=== PATIENT | male | born 1940 | race Caucasian/White ===

== ENCOUNTER 2016-08-24 12:12 | Emergency (ER) | payer MEDICARE ==
[2013-05-26 18:32] VITALS: BMI 29.0
[~2016-08-24 12:12] MED LIST: AMARYL1 MG; ASPIRIN81 MG PO; CRESTOR10 MG PO; EFFEXOR75 MG PO; FISH OIL 1,0001 CA1 PO; GEMFIBROZIL600 MG PO; IBUPROFEN200 MG; LISINOPRIL10 MG PO; PLAVIX75 MG PO
[2016-08-24 12:32] LABS: BASOPHILS 0.1 % (0-2); EOSINOPHILS 1.5 % (0-7); HEMATOCRIT 37.2 % (42.0-54.0); HEMOGLOBIN 12.9 g/dL (13.5-17.5); IMMATURE GRANULOCYTES 0.8 % (0-5); LYMPHOCYTES 20.4 % (15-50); MCH 32.2 pg (26.0-34.0); MCHC 34.7 g/dL (31.0-37.0); MCV 92.8 fL (80.0-100.0); MEAN PLATELET VOLUME 9.6 fL (7.4-10.4); MONOCYTES 12.8 % (2-11); NEUTROPHILS 64.4 % (40-80); PLATELET COUNT 159 10x3/uL (130-400); RBC 4.01 10x6/uL (4.20-6.10)
[2016-08-24 13:01] LABS: ALBUMIN 4.1 g/dL (3.4-5.0); ANION GAP 17.9 mmol/L (8-16); BILIRUBIN - TOTAL 0.5 mg/dL (0.2-1.3); CALCIUM 9.9 mg/dL (8.5-10.1); CREATININE - SERUM 1.6 mg/dL (0.6-1.3); POTASSIUM - SERUM 3.9 mmol/L (3.5-5.1); PROTEIN - SERUM 7.5 g/dL (6.4-8.2)
[2016-08-24 13:34] LABS: APPEARANCE CLEAR (CLEAR); BILIRUBIN NEGATIVE (NEGATIVE); COLOR DK YELLOW (YELLOW); EPITHELIAL CELLS 0-5 /hpf (0-5); GLUCOSE NEGATIVE (NEGATIVE); KETONE NEGATIVE (NEGATIVE); LEUKOCYTE ESTERASE TRACE (NEGATIVE); NITRITE NEGATIVE (NEGATIVE); PROTEIN NEGATIVE (NEGATIVE); RED CELLS - URINE RARE /hpf (0-5); UROBILINOGEN NORMAL (NORMAL); WHITE CELLS - URINE OCC /hpf (0-5)
[2016-08-24 13:35] LABS: BACTERIA FEW /hpf (NONE SEEN); HYALINE CAST OCC /lpf (NONE SEEN); MUCUS >1+ /lpf (NONE SEEN); WAXY CAST RARE /lpf (NONE SEEN)
== END 2016-08-24 14:45 | disposition home or self-care (01) ==
LOC: D.ER 12:12
PROVIDERS: Emergency Medicine
DX: R53.1 Weakness (principal); I95.1 Orthostatic hypotension; E11.9 Type 2 diabetes mellitus without complications; I10 Essential (primary) hypertension

== ENCOUNTER 2016-08-31 13:12 | Inpatient (IN) | payer MEDICARE ==
[~2016-08-31] VITALS: Ht 185.4 cm; Wt 90.1 kg
[~2016-08-31 13:12] MED LIST changes: -AMARYL1 MG; +GLIMEPIRIDE2 MG PO
[2016-08-31 14:01] LABS: APPEARANCE CLEAR (CLEAR); BILIRUBIN NEGATIVE (NEGATIVE); COLOR YELLOW (YELLOW); GLUCOSE NEGATIVE (NEGATIVE); KETONE NEGATIVE (NEGATIVE); LEUKOCYTE ESTERASE NEGATIVE (NEGATIVE); NITRITE NEGATIVE (NEGATIVE); PROTEIN NEGATIVE (NEGATIVE); SPECIFIC GRAVITY 1.015 (1.005-1.020); UROBILINOGEN NORMAL (NORMAL)
[2016-08-31 15:29] LABS: BASOPHILS 0.1 % (0-2); EOSINOPHILS 0.7 % (0-7); HEMOGLOBIN 12.8 g/dL (13.5-17.5); IMMATURE GRANULOCYTES 1.6 % (0-5); LYMPHOCYTES 16.4 % (15-50); MCH 31.9 pg (26.0-34.0); MCHC 34.6 g/dL (31.0-37.0); MCV 92.3 fL (80.0-100.0); MONOCYTES 12.3 % (2-11); NEUTROPHILS 68.9 % (40-80); RBC 4.01 10x6/uL (4.20-6.10); RDW 13.3 % (11.5-14.5); WBC 10.7 10x3/uL (4.8-10.8)
[2016-08-31 15:31] LABS: PLATELET COUNT 232 10x3/uL (130-400)
[2016-08-31 15:32] LABS: INR 1.15 (0.85-1.17); PROTIME 14.6 SECONDS (11.6-15.0)
[2016-08-31 15:33] LABS: APTT 31.6 SECONDS (22.8-39.4)
[2016-08-31 15:37] LABS: ANION GAP 22.5 mmol/L (8-16); BILIRUBIN - TOTAL 0.44 mg/dL (0.2-1.3); CALCIUM 9.7 mg/dL (8.5-10.1); CARBON DIOXIDE 17.3 mmol/L (21.0-32.0); CREATININE - SERUM 2.7 mg/dL (0.6-1.3); POTASSIUM - SERUM 3.8 mmol/L (3.5-5.1); PROTEIN - SERUM 7.8 g/dL (6.4-8.2)
[2016-08-31] MEDS ORDERED: FLAXSEED OIL1000 MG PO (17:51)
[2016-08-31] MEDS ORDERED: ZOCOR40 MG PO (17:51)
[2016-08-31 17:53] VITALS: BP 166/84; BMI 22.3
--- NOTE | 2016-08-31 18:33 | NUR ---
PT FIRST EKG IS ON CHART. ORDER FOR RICHARDS CATH OBTAINED. 16F RICHARDS CATH INSERTED STERILE TECHNIQUE INITIATED. 10 CC STERILE NS INSERTED INTO BALLOON. PT TOLERATED WELL.
--- NOTE | 2016-08-31 18:44 | NUR ---
PT BS BACK UP TO 88
[2016-08-31 19:00] VITALS: BP 171/81
[2016-08-31 19:23] LABS: CKMB 1.1 U/L (0.0-3.6); CREATINE KINASE 55 UL (21-232)
[2016-08-31 19:25] LABS: TROPONIN-I < 0.017 ng/mL (0.000-0.060)
--- NOTE | 2016-08-31 19:30 | NUR ---
RECEIVED REPORT, WILL ASSUME CARE OF PT, PT DENIES ANY NEEDS, BED IS LOW, SRX2, BED ALARM IS ON. CALL LIGHT IN REACH, WILL CONTINUE PLAN OF CARE
--- NOTE | 2016-08-31 23:47 | NUR ---
EKG COMPLETE, BLOODSUGAR-72, NO COVERAGE NEEDED
[2016-09-01] VITALS: BP 154/85
[2016-09-01 01:35] LABS: CKMB 1.4 U/L (0.0-3.6); CREATINE KINASE 71 UL (21-232); TROPONIN-I < 0.017 ng/mL (0.000-0.060)
[2016-09-01 04:00] VITALS: BP 145/76
[2016-09-01 06:32] LABS: BASOPHILS 0.1 % (0-2); EOSINOPHILS 0.6 % (0-7); HEMATOCRIT 34.9 % (42.0-54.0); HEMOGLOBIN 12.6 g/dL (13.5-17.5); MCHC 36.1 g/dL (31.0-37.0); MEAN PLATELET VOLUME 9.4 fL (7.4-10.4); MONOCYTES 14.3 % (2-11); RBC 3.94 10x6/uL (4.20-6.10); RDW 12.8 % (11.5-14.5); WBC 9.2 10x3/uL (4.8-10.8)
[2016-09-01 06:55] LABS: ALBUMIN 3.8 g/dL (3.4-5.0); ALKALINE PHOSPHATASE 56 U/L (46-116); ALT (SGPT) 18 U/L (10-68); BILIRUBIN - TOTAL 0.99 mg/dL (0.2-1.3); CALC OSMOLALITY 294 mosm/kg (275-300); CALCIUM 9.4 mg/dL (8.5-10.1); CARBON DIOXIDE 14.2 mmol/L (21.0-32.0); CHLORIDE - SERUM 111 mmol/L (98-107); CHOL - HDL RATIO 4.5 ratio (2.3-4.9); CHOLESTEROL, TOTAL 109 mg/dL (0-200); CKMB 1.9 U/L (0.0-3.6); CREATINE KINASE 73 UL (21-232); GLUCOSE 85 mg/dL (74-106); HDL CHOLESTEROL 24 mg/dL (32-96); LDL CHOLESTEROL 55 mg/dL (0-100); LDL-HDL RATIO 2.3 ratio (1.5-3.5); MAGNESIUM - SERUM 2.2 mg/dL (1.8-2.4); PHOSPHOROUS 2.8 mg/dL (2.5-4.9); PROTEIN - SERUM 7.5 g/dL (6.4-8.2); SODIUM 144 mmol/L (136-145); TRIGLYCERIDE 152 mg/dL (30-200); UREA NITROGEN 38 mg/dL (7-18)
[2016-09-01 07:03] LABS: CREATININE - SERUM 1.8 mg/dL (0.6-1.3); POTASSIUM - SERUM 3.2 mmol/L (3.5-5.1); TROPONIN-I < 0.017 ng/mL (0.000-0.060); eGFR NON AFRICAN AMERICAN 39 mL/min (90-120)
[2016-09-01 07:04] LABS: MCV 88.6 fL (80.0-100.0); PLATELET COUNT 169 10x3/uL (130-400)
--- NOTE | 2016-09-01 07:22 | NUR ---
PT IN BED TALKING WITH FAMILY MEMBER. REQUESTS TO SPEAK WITH THE DOCTOR ABOUT HIS CONDITION AND WHAT IS GOING TO HAPPEN TO HIM.
[2016-09-01 08:12] VITALS: BP 127/78
[2016-09-01 12:13] VITALS: BP 126/75
[2016-09-01 12:20] VITALS: Ht 185.4 cm; Wt 90.1 kg
[2016-09-01 16:07] VITALS: BP 112/76
--- NOTE | 2016-09-01 16:19 | NUR ---
OT NOTE: PT COMPLETED BUE AROM EXS FOR INCREASED I WITH TRANSFERS. PT COMPLETED BED MOB WITH MIN A. PT COMPLETED GROOMING TASK WITH SET UP. THANK YOU, VANIA HUIZAR
--- NOTE | 2016-09-01 17:31 | NUR ---
Patient Name: JAGDEEP CABRALES Admission Status: ER Accout number: [id number] Admission Date: 08-31-2016 : 1940 Admission Diagnosis:SYNCOPE AND COLLAPSE Attending: ROM Current LOS: 1 Anticipated DC Date: Planned Disposition: Inpatient Rehab Primary Insurance: MEDICARE A & B PLANNED EXTERNAL PROVIDER: [facility] Discharge Planning Comments: * Is the patient Alert and Oriented? Yes 0 * How many steps to enter\exit or inside your home? -I 0 * PCP DR. VANESSA 0 * [facility] ORDER 0 * Preadmission Environment Home Alone 0 * ADLs Independent 0 * Equipment None 0 * Other Equipment NO MEDICAL EQUIPMENT PROVIDER PREFERENCE 0 * List name and contact numbers for known caregivers / representatives who currently or will assist patient after discharge: CANDI MARCELLA, FRIEND, HALIMA MARCELLA, FRIEND, 0 * Community resources currently utilized None 0 * Please name any agencies selected above. NONE 0 * Additional services required to return to the preadmission environment? Yes * Can the patient safely return to the preadmission environment? Yes 0 * Has this patient been hospitalized within the prior 30 days at any hospital? No 0 CM RECEIVED ORDER FOR INPATIENT REHAB PRESCREEN, MET WITH PT IN ROOM TO DISCUSS DISCHARGE PLANNING AND NEEDS. PT REPORTS LIVING AT HOME INDEPENDENTLY AND ALONE. PT HAS NO MEDICAL EQUIPMENT AND NO OUTSIDE SERVICES ASSISTING IN THE HOME. CM DISCUSSED AVAILABILITY OF HOME HEALTH, REHAB SERVICES AND MEDICAL EQUIPMENT. PT THINKS HE NEEDS REHAB AND WOULD LIKE TO BE CONSIDERED FOR REHAB AT [facility]. IF PT IS UNABLE TO PARTICIPATE IN THREE HOURS OF PROGRESSIVE THERAPY OR REHAB WILL NOT ACCEPT HERE, PT WOULD LIKE TO BE REFERRED TO [facility] FOR REHAB; PT REPORTS HIS NEIGHBOR WILL PICK HIM UP FOR DISCHARGE HOME CM WAITING MEDICAL STABILITY, PT / OT EVALUATION RESULTS AND RESULTS OF INPATIENT REHAB PRESCREENING. Sales Clerk Food: Manuel Horvath
--- NOTE | 2016-09-01 18:03 | NUR ---
PT SITTING UP IN BED WATCHING TV DENIES NEEDS
[2016-09-01 19:00] VITALS: BP 171/85
--- NOTE | 2016-09-01 19:30 | NUR ---
RECEIVED REPORT, WILL ASSUME CARE OF PT, PT WATCHING TV, DENIES ANY NEEDS, SAID FEELING BETTER SINCE HE WAS ABLE TO EAT AND DRINK, BED IS LOW, SRX2, CALL LIGHT IN REACH, BED ALARM IS ON, WILL CONTINUE PLAN OF CARE
[2016-09-02] VITALS: BP 179/85
--- NOTE | 2016-09-02 00:16 | NUR ---
ASSESSMENT REMAINS UNCHANGED. PT RESTING SOUNDLY WITHOUT C/O OR DISTRESS NOTED. DENIES ANY CURRENT C/O PAIN. WILL CONT TO MONITOR
--- NOTE | 2016-09-02 00:30 | NUR ---
BLOODSUGAR-124, NO COVERAGE NEEDED AT THIS TIME
[2016-09-02 04:06] VITALS: BP 164/77
[2016-09-02 04:52] LABS: BASOPHILS 0.1 % (0-2); EOSINOPHILS 1.1 % (0-7); HEMATOCRIT 34.2 % (42.0-54.0); HEMOGLOBIN 12.1 g/dL (13.5-17.5); IMMATURE GRANULOCYTES 0.9 % (0-5); LYMPHOCYTES 20.8 % (15-50); MCH 31.7 pg (26.0-34.0); MCHC 35.4 g/dL (31.0-37.0); MCV 89.5 fL (80.0-100.0); MEAN PLATELET VOLUME 9.7 fL (7.4-10.4); MONOCYTES 15.7 % (2-11); NEUTROPHILS 61.4 % (40-80); PLATELET COUNT 172 10x3/uL (130-400); RBC 3.82 10x6/uL (4.20-6.10); RDW 13.1 % (11.5-14.5); WBC 9.4 10x3/uL (4.8-10.8)
--- NOTE | 2016-09-02 05:38 | NUR ---
BLOODSUGAR-81, NO COVERAGE NEEDED AT THIS TIME
[2016-09-02 05:49] LABS: ALBUMIN 3.4 g/dL (3.4-5.0); BILIRUBIN - TOTAL 0.59 mg/dL (0.2-1.3); CALCIUM 8.6 mg/dL (8.5-10.1); CARBON DIOXIDE 14.9 mmol/L (21.0-32.0); CREATININE - SERUM 1.6 mg/dL (0.6-1.3); POTASSIUM - SERUM 2.9 mmol/L (3.5-5.1); PROTEIN - SERUM 7.1 g/dL (6.4-8.2)
--- NOTE | 2016-09-02 05:57 | NUR ---
K+ 2.9, STARTED ELETROLYTE PROTOCOL, GAVE 20MEQ
--- NOTE | 2016-09-02 07:15 | NUR ---
PT LAYING TO LEFT SIDE SLEEPING NO S/S DISTRESS NOTED RR EVEN AND UNLABORED WILL CONT TO MONITOR
[2016-09-02 07:33] LABS: MAGNESIUM - SERUM 1.9 mg/dL (1.8-2.4); PHOSPHOROUS 3.2 mg/dL (2.5-4.9)
[2016-09-02 07:42] VITALS: BP 162/84
[2016-09-02 12:20] VITALS: BP 152/85
[2016-09-02 15:52] VITALS: BP 173/83
--- NOTE | 2016-09-02 18:06 | NUR ---
PT SITTING UP IN BED SLEEPING NO S/S DISTRESS NOTED RR EVEN AND UNLABORED.
[2016-09-02 20:00] VITALS: BP 185/85
--- NOTE | 2016-09-02 21:44 | NUR ---
PT LYING IN BED, AWAKE, ALERT, ORIENTED, ASKING IF HE WAS GOING TO BE ABLE TO GO HOME SOON. I EXPLAINED TO PT THAT HIS PHYSICIANS ARE WANTING HIM TO HAVE PT, IN WHICH PT STATES HE INTENDS ON DOING AT HOME. PT DENIES ANY NEEDS. PT ENJOYS TELLING SEXUALLY ORIENTED JOKES AND DISCUSSING HIS TIME SERVED IN THE [employer] DURING . CONTINUE TO MONITOR CLOSELY.
--- NOTE | 2016-09-03 00:10 | NUR ---
FSBS 78 - CHOCOLATE PUDDING GIVEN
[2016-09-03 04:00] VITALS: BP 161/82
--- NOTE | 2016-09-03 06:07 | NUR ---
FSBS IS 67, GAVE PT JELLO X 1
[2016-09-03 07:39] LABS: BASOPHILS 0 % (0-2); EOSINOPHILS 0.8 % (0-7); HEMATOCRIT 34.9 % (42.0-54.0); HEMOGLOBIN 12.2 g/dL (13.5-17.5); IMMATURE GRANULOCYTES 0.7 % (0-5); LYMPHOCYTES 16.2 % (15-50); MCH 31.6 pg (26.0-34.0); MCV 90.4 fL (80.0-100.0); MEAN PLATELET VOLUME 9.8 fL (7.4-10.4); MONOCYTES 15.6 % (2-11); NEUTROPHILS 66.7 % (40-80); PLATELET COUNT 171 10x3/uL (130-400); RBC 3.86 10x6/uL (4.20-6.10); RDW 13.1 % (11.5-14.5); WBC 9.7 10x3/uL (4.8-10.8)
[2016-09-03 07:52] LABS: ALBUMIN 3.4 g/dL (3.4-5.0); ANION GAP 19.8 mmol/L (8-16); BILIRUBIN - TOTAL 0.47 mg/dL (0.2-1.3); CALCIUM 8.9 mg/dL (8.5-10.1); CARBON DIOXIDE 15.4 mmol/L (21.0-32.0); CREATININE - SERUM 1.3 mg/dL (0.6-1.3); POTASSIUM - SERUM 3.2 mmol/L (3.5-5.1); PROTEIN - SERUM 7.3 g/dL (6.4-8.2)
[2016-09-03 08:00] VITALS: BP 159/79
--- NOTE | 2016-09-03 08:14 | NUR ---
AM ROUNDING- RECEIVED REPORT FROM FIRE CONTROL OFFICER NURSE KEERTHI. PT IS CURRENTLY SITTING UP IN BED WITH EYES OPEN RESTING EATING BREAKFAST. ON ROOM AIR. ON MONITOR SHOWING SR, HR 65. IV SEEN TO LEFT FOREARM THAT IS CURRENTLY SALINE LOCKED. NO NEED AT CURRENT TIME. WILL CONTINUE TO MONITOR AND CONTINUE WITH PLAN OF CARE.
[2016-09-03 12:00] VITALS: BP 152/76
[2016-09-03 16:00] VITALS: BP 174/78
--- NOTE | 2016-09-03 16:15 | NUR ---
PAGED DR. MATHUR REGARDING ORDERES TO D/C PTS RICHARDS CATHETER SEEING HOW PT IS BEING D/C HOME TODAY. WILL AWAIT CALLBACK AND CONTINUE TO MONITOR.
--- NOTE | 2016-09-03 16:20 | NUR ---
RECEIVED CALLBACK FROM DR. MATHUR. DR. MATHUR STATES OKAY TO SEND PT HOME WITH RICHARDS CATHETER AND HAVE HOME HEALTH START BLADDER TRAINING AND D/C RICHARDS CATHETER WHEN APPROPIATE. WILL INSTRUCT PT ON HOW TO EMPTY RICHARDS CATHETER BAG AND CONTINUE TO MONITOR.
--- NOTE | 2016-09-03 16:46 | NUR ---
PAGED DR. MATHUR DUE TO PT WANTING RICHARDS CATHETER REMOVED BEFORE D/C. WILL AWAIT CALLBACK AND CONTINUE TO MONITOR.
--- NOTE | 2016-09-03 17:02 | NUR ---
7991- [place], FOOD AND BEVERAGE COORDINATOR PAGED DR. MATHUR FOR SECOND TIME TO SEE ABOUT D/C PTS RICHARDS CATHETER PER NURSE JUDGEMENT AND PT REQUEST. WILL AWAIT CALLBACK.
--- NOTE | 2016-09-03 17:03 | NUR ---
PAGED DR. MATHUR FOR THIRD TIME TIME TO SEE ABOUT D/C PTS RICHARDS CATHETER REQUESTED BY PT AND PER NURSE JUDGEMENT. WILL AWAIT CALLBACK.
--- NOTE | 2016-09-03 17:17 | NUR ---
SANTOS, CHARGE NURSE SPOKE WITH DR. MATHUR AND DR. MATHUR STATES IT IS OKAY TO D/C PTS RICHARDS AND HAVE PT PEE BEFORE D/C. D/C PTS RICHARDS CATHETER ORDERED AND INSTRUCTED PT TO TRY AND URINATE. GAVE PT URINAL. WILL CONTINUE TO MONITOR.
--- NOTE | 2016-09-03 17:25 | NUR ---
LATE ENTRY 1500 PLAN FOR DISCHARGE TO HOME TODAY. PATIENT WILL ACCEPT HOME HEALTH. REVIEWED PROVIDERS. PATIENT SELECTED [facility]. TC TO [facility]. LEFT VOICE MAIL MESSAGE FOR LENORE, [facility] [employer] EQUIPMENT OPERATOR NURSE. PATIENT CHOICE FORM SIGNED. PATIENT HAD HIS CTA THIS AFTERNOON. PERSON TO NOTIFY CONTACTS CHANGED FROM Codie OLIVEIRA TO CANDI NARANJO AT [address], IN [place]. CONTACT PHONE NUMBERS CELL [phone] AND HOME [phone]. CHART REVIEWED. PATIENT HAS BEEN RECEIVING PHYSICAL THERAPY AND AMBULATING WITH A WALKER. HE DOES NOT HAVE A WALKER AT HOME. OBTAINED ORDER FOR WALKER. NO PREFERRED PROVIDER. TC TO [facility]. SPOKE WITH MARIA TERESA. PROVIDED INFORMATION. WALKER TO BE DELIVERED TO HIS ROOM. TC TO [facility] CM HAD NOT RECEIVED CB. SPOKE WITH LENORE. REFERRAL GIVEN. FAXED MD ORDER AND CLINICAL TO [phone]. CM ALSO DISCUSSED WITH THE PATIENT HOW TO ACCESS [facility] REHAB IF HE IS NOT MANAGING AT HOME. EXPLAINED THE SKILLED BENEFIT UNDER TRADITIONAL MEDICARE. HE HAD EXPRESSED AN INTEREST IN [facility] AT [facility]. PATIENT HAD ACUTE REHAB ORDER FROM 08/31. CANNOT LOCATE ASSESSMENT. PATIENT STILL HAD HIS RICHARDS. PRIMARY NURSE, LENKA, SPOKE WITH DR MATHUR. HE HAD STATED TO SEND PATIENT HOME W/ RICHARDS AND HAVE H/H TO ADDRESS BLADDER TRAINING. PATIENT WAS NOT IN AGREEMENT W/ PLAN. PREFERS TO HAVE RICHARDS D'CD PRIOR TO DISCHARGE. PRIMARY NURSE, LENKA, PLACED TC TO DR MATHUR. CM HAD EXPRESSED CONCERN PATIENT LIVES ALONE AND DOES HAVE SOME COORDINATION ISSUES. [facility] WILL SEE THE PATIENT SUNDAY OR SUNDAY. RICHARDS CLAMPED. AWAITING PATIENT TO VOID.
--- NOTE | 2016-09-03 17:35 | NUR ---
PLAVIX AND ASA CALLED IN TO [facility] @ [facility] ORDERED BY DR VASQUEZ MATHUR.
--- NOTE | 2016-09-03 17:36 | NUR ---
D/C INSTRUCTIONS EXPLAINED TO PT. D/C PAPERWORK SIGNED BY PT AND PLACED IN CHART. HEART MONITOR REMOVED (BY MEERA ARREDONDO) AND RETURNED TO [facility] WITH TELEMETRY. IV TO LEFT FOREARM REMOVED WITH CATH TIP INTACT. TOLERATED WELL. RICHARDS CATHETER REMOVED WITH 9CC OF FLUID IN BALLOON SYRINGE TOLERATED WELL. PT URINATED IN URINAL. GUEST AT BEDSIDE AWAITING TO TAKE PT HOME. WILL D/C VIA WHEELCHAIR ONCE PT IS READY. WILL CONTINUE TO MONITOR.
--- NOTE | 2016-09-03 17:53 | NUR ---
PT D/C VIA WHEELCHAIR.
== END 2016-09-03 17:54 | disposition home health service (06) | DRG 66 ==
LOC: D.ER 13:12 → D.M2 16:58
PROVIDERS: Emergency Medicine; Nurse Practitioner Acute Care; ADMIT Emergency Medicine
DX: I63.9 Cerebral infarction, unspecified (principal); R55 Syncope and collapse; E11.42 Type 2 diabetes mellitus with diabetic polyneuropathy; E11.65 Type 2 diabetes mellitus with hyperglycemia; I10 Essential (primary) hypertension; R40.2143 Coma scale, eyes open, spontaneous, at hospital admission; R40.2363 Coma scale, best motor response, obeys commands, at hospital admission; R40.2253 Coma scale, best verbal response, oriented, at hospital admission; F41.9 Anxiety disorder, unspecified; Z91.81 History of falling